=== PATIENT | female | born 1970 | race Two or more races ===

== ENCOUNTER 2024-05-29 18:15 | Emergency (ER) | payer OTHER ==
[~2024-05-29] VITALS: Ht 152.4 cm; Wt 79.4 kg
[2024-05-29 19:00] VITALS: BP 127/43; PULSE 72; RESP 18; TEMP 99.8; O2SAT 98
[2024-05-29] MEDS ORDERED: DIPH25CA66 PO (19:51)
[2024-05-29] MEDS ORDERED: PRED20TA2 PO (19:51)
[2024-05-29] MEDS ORDERED: CLIN1CAP70 PO (19:51)
[2024-05-29] MEDS: diphenhdrAMINE HCL 50 MG/1 ML VL IM ONE (20:10)
[2024-05-29] MEDS: methylPREDNISolone SOD SUCC 125 MG/2 ML VL IM ONE (20:11)
[2024-05-29] MEDS: CLINDAMYCIN HCL 150 MG CAP PO ONE (20:11)
== END 2024-05-29 20:21 | disposition home or self-care (01) ==
LOC: ER 18:15
DX: S00.462A Insect bite (nonvenomous) of left ear, initial encounter (principal); T78.49XA Other allergy, initial encounter; E03.9 Hypothyroidism, unspecified; Z98.890 Other specified postprocedural states; Z79.899 Other long term (current) drug therapy; Z88.1 Allergy status to other antibiotic agents; Z88.0 Allergy status to penicillin; W57.XXXA Bitten or stung by nonvenomous insect and other nonvenomous arthropods, initial encounter; X58.XXXA Exposure to other specified factors, initial encounter; Y93.89 Activity, other specified; Y92.89 Other specified places as the place of occurrence of the external cause; Y99.8 Other external cause status
CPT/HCPCS: 96372; 99284; J1200; J2919